=== PATIENT | male | born 1995 | race Caucasian/White ===

== ENCOUNTER 2017-10-27 23:52 | Emergency (ER) | payer SELFPAY ==
--- NOTE | 2017-10-28 01:40 | C.PDOC ---
History Of Present Illness 22 year old male presents to the ED initially c/o abdominal pain, small rash on the medial aspect of his B/L knees. After further questioning patient is worried about possible STD after having unprotected intercourse. Patient denies penile discharge, penile rash, dysuria, hematuria, nausea, vomit, diarrhea. Time Seen by Provider: 10/28/17 01:39 Chief Complaint (Nursing): Abdominal Pain History Per: Patient History/Exam Limitations: no limitations Onset/Duration Of Symptoms: Days Current Symptoms Are (Timing): Still Present Location Of Pain/Discomfort: Diffuse Radiation Of Pain To:: None Quality Of Discomfort: "Pain" Associated Symptoms: Urinary Symptoms Exacerbating Factors: None Alleviating Factors: None Recent travel outside of the [place]: No Additional History Per: Patient Past Medical History Reviewed: Historical Data, Nursing Documentation, Vital Signs Vital Signs: Last Vital Signs Temp 98.1 F 10/28/17 00:27 Pulse 70 10/28/17 00:27 Resp 20 10/28/17 00:27 BP 132/86 10/28/17 00:27 Pulse Ox 98 10/28/17 02:26 - Medical History PMH: Asthma Surgical History: No Surg Hx Family History: States: Unknown Family Hx - Social History Hx Alcohol Use: Yes Hx Substance Use: No Review Of Systems Constitutional: Negative for: Fever, Chills Cardiovascular: Negative for: Chest Pain Respiratory: Negative for: Cough, Shortness of Breath Gastrointestinal: Positive for: Abdominal Pain. Negative for: Nausea, Vomiting Genitourinary: Negative for: Dysuria, Hematuria, Penile Discharge, Rash Skin: Positive for: Rash Neurological: Negative for: Weakness, Numbness, Headache Physical Exam - Physical Exam Appears: Non-toxic, No Acute Distress Skin: Warm, Dry, Rash (small erythematous rash 4x8 cm to the medial aspect of knees L>R) Head: Normacephalic Nose: No Discharge, No Deformity Oral Mucosa: Moist Neck: Normal ROM, Supple Chest: Symmetrical Cardiovascular: Rhythm Regular, No Murmur Respiratory: No Decreased Breath Sounds, No Rales, No Rhonchi, No Wheezing Gastrointestinal/Abdominal: Soft, No Tenderness, No Guarding, No Rebound Male Genital: No Scrotal Swelling, Circumcised, Other (Penile shaft non tender, no penile rash) Extremity: Normal ROM, No Tenderness, No Swelling, Other (small erythematous rash 4x8 cm to the medial aspect of knees L>R) Neurological/Psych: Oriented x3 Gait: Steady ED Course And Treatment O2 Sat by Pulse Oximetry: 98 (On RA) Pulse Ox Interpretation: Normal Progress Note: Plan: -Benadryl 25 mg PO. -Rocephin 250 mg IM. -Zithromax 1, 000 mg PO. -Prednisone 60 mg PO. -UA Disposition Counseled Patient/Family Regarding: Studies Performed, Diagnosis, Need For Followup - Disposition Disposition: HOME/ ROUTINE Disposition Time: 01:40 Condition: FAIR Instructions: Dermatitis (ED) Forms: My Top 10 (Frisian) - Clinical Impression Clinical Impression: Rash - Scribe Statement The provider has reviewed the documentation as recorded by the Scribe Matthias Monaco All medical record entries made by the Scribe were at my direction and personally dictated by me. I have reviewed the chart and agree that the record accurately reflects my personal performance of the history, physical exam, medical decision making, and the department course for this patient. I have also personally directed, reviewed, and agree with the discharge instructions and disposition.
[2017-10-28 01:43] LABS: URINE BILIRUBIN NEGATIVE (NEGATIVE); URINE BLOOD NEGATIVE (NEGATIVE); URINE CLARITY Clear (Clear); URINE COLOR Yellow (YELLOW); URINE GLUCOSE (UA) NORMAL (Normal); URINE LEUKOCYTE ESTERASE NEG Leu/uL (Negative); URINE NITRATE NEGATIVE (NEGATIVE); URINE PROTEIN NEGATIVE (NEGATIVE)
[2017-10-28] MEDS ORDERED: cefTRIAXone (Rocephin) 250 mg Inj IM STA (01:49)
[2017-10-28 02:47] VITALS: BP 122/81; PULSE 55; RESP 18; TEMP 97.4; O2SAT 99
== END 2017-10-28 02:47 | disposition home or self-care (01) ==
LOC: C.ER 23:52
DX: R21 Rash and other nonspecific skin eruption (principal)
CPT/HCPCS: 81001; 96372; J0696